=== PATIENT | male | born 1970 | race Caucasian/White ===

== ENCOUNTER 2022-08-15 14:48 | Inpatient (IN) | payer BC ==
[~2022-08-15] VITALS: Ht 175.3 cm; Wt 86.2 kg
[2022-08-15 21:25] VITALS: BP 132/70
--- NOTE | 2022-08-15 21:25 | NUR ---
ADMISSION NOTES PT ARRIVED VIA GURNEY FROM [facility] ACCOMPANIED BY 2 test baker FOR TRANSPORTATION. AOx4, ABLE TO MAKE NEEDS KNOWN. ON RA AND TOLERATING WELL. NO SOB NOTED. NO S/SX OF RESPIRATORY DISTRESS NOTED. TELE MONITOR ON. IV ACCESS IN NATALIA MIDLINE #18G. IV IS INTACT, PATENT, AND FLUSHING WELL. SAFETY PRECAUTIONS IN PLACE: BED IN LOWEST, LOCKED POSITION, SIDERAILS UPx2, AND BRAKES ON. TABLE AND CALL LIGHT WITHIN REACH. ALL NEEDS MET AT THIS TIME.
[2022-08-15] MEDS ORDERED: ZOLPIDEM TARTRATE 5 MG TABLET PO PRN (22:30)
[2022-08-15] MEDS ORDERED: DEXTROSE 50%-WATER 50 ML DISP.SYRIN IV PRN (22:30)
[2022-08-15] MEDS ORDERED: ONDANSETRON HCL/PF 4 MG/2 ML VIAL IVP PRN (22:30)
[2022-08-15] MEDS ORDERED: MAGNESIUM HYDROXIDE 30 ML UDC PO PRN (22:30)
[2022-08-15] MEDS ORDERED: MAG HYDROX/AL HYDROX/SIMETH 30 ML UDC PO PRN (22:30)
[2022-08-15] MEDS ORDERED: ACETAMINOPHEN 325 MG TABLET PO PRN (22:30)
[2022-08-15] MEDS ORDERED: Z GUARD REMEDY 4 OZ OINT TP PRN (22:30)
[2022-08-15] MEDS: MORPHINE SULFATE INJ 2 MG/ML DISP.SYRIN IV PRN (22:41)
--- NOTE | 2022-08-15 22:41 | NUR ---
RN NOTES ADMINISTERED MORPHINE FOR PAIN PER MD ORDER. VS WNL.
[2022-08-16] VITALS (16 sets, daily range): BP systolic 113–148; BP diastolic 60–86
[2022-08-16] MEDS: MORPHINE SULFATE INJ 2 MG/ML DISP.SYRIN IV PRN ×3 (02:50→14:38)
--- NOTE | 2022-08-16 02:50 | NUR ---
RN NOTES ADMINISTERED MORPHINE FOR PAIN PER MD ORDER. VS WNL.
[2022-08-16 05:50] LABS: BASOPHILS % (AUTO) 0.4 % (0.0-2.0); EOSINOPHILS % (AUTO) 6.2 % (0.0-6.0); HEMATOCRIT 35 % (39-51); HEMOGLOBIN 11.9 g/dL (13.5-17.5); LYMPHOCYTES # (AUTO) 2.3 K/uL (0.8-4.8); LYMPHOCYTES % (AUTO) 46.5 % (20.0-44.0); MEAN CORPUSCULAR HGB CONC 34 g/dl (31.0-36.0); MEAN CORPUSCULAR VOLUME 94 fL (80-96); MONOCYTES # (AUTO) 0.4 K/uL (0.1-1.30); MONOCYTES % (AUTO) 8.9 % (2.0-12.0); NEUTROPHILS # (AUTO) 1.9 K/uL (1.8-8.9); PLATELET COUNT (AUTO) 81 K/uL (150-450); RED BLOOD CELL COUNT(AUTO) 3.75 MIL/uL (4.5-6.0); WHITE BLOOD COUNT (AUTO) 4.9 K/uL (4.3-11.0)
[2022-08-16 06:03] LABS: CALCIUM, SERUM 8.4 mg/dL (8.5-10.1); CARBON DIOXIDE 29 mmol/L (21-32); CHLORIDE 103 mmol/L (98-107); CREATININE 1.4 mg/dL (0.6-1.3); GLUCOSE 92 mg/dL (74-106); MAGNESIUM 1.7 mg/dL (1.8-2.4); PHOSPHORUS 4.6 mg/dL (2.5-4.9); POTASSIUM 3.8 mmol/L (3.5-5.1); SODIUM SERUM 137 mmol/L (136-145); UREA NITROGEN, BLOOD 14 mg/dL (7-18)
[2022-08-16 06:12] LABS: CHOLESTEROL 183 mg/dL (<200); HDL CHOLESTEROL 34 mg/dL (40-60); LDL 127 mg/dL (0-99); TRIGLYCERIDES 121 mg/dL (30-150)
--- NOTE | 2022-08-16 06:52 | NUR ---
RN CLOSING NOTES PT IN BED, ASLEEP, AWAKENS TO VERBAL STIMULI. AOx4, ABLE TO MAKE NEEDS KNOWN. ON RA AND TOLERATING WELL. NO SOB NOTED. NO S/SX OF RESPIRATORY DISTRESS NOTED. TELE MONITOR DETECTS SINUS RHYTHM WITH BBB. IV ACCESS IN NATALIA MIDLINE #18G. IV IS INTACT, PATENT, AND FLUSHING WELL. ALL ORDERS CARRIED OUT. ALL NEEDS MET. PT KEPT CLEAN AND DRY. SAFETY PRECAUTIONS IN PLACE: BED IN LOWEST, LOCKED POSITION, SIDERAILS UPx2, AND BRAKES ON. TABLE AND CALL LIGHT WITHIN REACH. WILL ENDORSE TO ONCOMING SHIFT FOR GRACIELA.
[2022-08-16] MEDS: BLOOD SUGAR DIAGNOSTIC 1 EACH STRIP IN SCH ×4 (07:30→22:12)
--- NOTE | 2022-08-16 07:53 | NUR ---
RN OPENING NOTE PATIENT AWAKE IN BED RESTING. A/O X4. NO S/S OF PAIN NOTED AT THIS TIME. ON ROOM AIR, NO DISTRESS OR SHORTNESS OF BREATH NOTED. IV ACCESS NATALIA MIDLINE, INTACT, PATENT AND FLUSHING WELL. FALL AND SAFETY MEASURES IN PLACE, BED ALARM ON, BED IN LOW AND LOCK POSITION, CALL LIGHT AND TABLE WITHIN EASY REACH, SIDE RAILS UP X2. WILL CONTINUE TO MONITOR. Addendum: 08/16/22 at 0755 by Joann Lagunas RN PATIENT ON EXTERNAL CARDIA MONITOR WITH CURRENT READING OF SR WITH BBB AND HR OF 68.
[2022-08-16] MEDS ORDERED: ALLA266C2 TP (07:58)
[2022-08-16] MEDS ORDERED: ONDA4VIA52 IV (07:58)
[2022-08-16] MEDS ORDERED: ATOR10TA PO (07:58)
[2022-08-16] MEDS ORDERED: ACET-868 PO (07:58)
[2022-08-16] MEDS ORDERED: CLOP75TA15 PO (07:58)
[2022-08-16] MEDS ORDERED: MORP2VIA IV (07:58)
[2022-08-16] MEDS ORDERED: CITA40TA11 PO (07:58)
[2022-08-16] MEDS ORDERED: PANT40TA2 PO (07:58)
[2022-08-16] MEDS ORDERED: RANO10005 PO (08:02)
[2022-08-16] MEDS ORDERED: TADA5TAB13 PO (08:02)
[2022-08-16] MEDS ORDERED: TRAZ300T2 PO (08:02)
[2022-08-16] MEDS ORDERED: RISP0.2515 PO (08:02)
[2022-08-16] MEDS ORDERED: AMLO-212 PO (08:02)
[2022-08-16] MEDS ORDERED: GABA600T12 PO (08:02)
[2022-08-16] MEDS ORDERED: PRAZ1CAP5 PO (08:02)
[2022-08-16] MEDS ORDERED: BUPR1FIL24 SL (08:02)
[2022-08-16] MEDS ORDERED: ISOS120T13 PO (08:02)
[2022-08-16] MEDS: PANTOPRAZOLE 40 MG VIAL IV SCH (08:37)
[2022-08-16 08:40] LABS: EOSINOPHILS % (MANUAL) 6 % (0-4); LYMPHOCYTES % (MANUAL) 45 % (16-48); MONOCYTES % (MANUAL) 9 % (0-11.0); NEUTROPHILS % (MANUAL) 40 (42-76)
[2022-08-16] MEDS: CLOPIDOGREL BISULFATE 75 MG TABLET PO SCH (08:41)
[2022-08-16] MEDS: CITALOPRAM HYDROBROMIDE 20 MG TABLET PO SCH (08:41)
[2022-08-16] MEDS: Magnesium 1GM/D5W 100ML PREMIX 100 ML IV SCH ×2 (11:20→12:00)
[2022-08-16] MEDS ORDERED: IV SET PRIMARY PUMP SET 1 EA INFUS.SET MC ONE (11:58)
[2022-08-16] MEDS ORDERED: IV NS 0.9% 1,000 ML ONE (11:58)
[2022-08-16] MEDS ORDERED: IODIXANOL 320MG/ML 0 ML IV ONE ×2 (11:58→13:37)
[2022-08-16] MEDS ORDERED: LIDOCAINE HCL/MPF 1% 30 ML VIAL IJ ONE (11:59)
[2022-08-16] MEDS ORDERED: FENTANYL PF 100MCG/2ML AMPUL ONE (11:59)
[2022-08-16] MEDS ORDERED: MIDAZOLAM HCL 2 MG/2ML VIAL ONE (11:59)
--- NOTE | 2022-08-16 12:00 | NUR ---
RN NOTE PATIENT IS NOT IN HIS ROOM PATIENT WENT FOR CARDIAC CATH. WITH DR. ANGEL.
[2022-08-16] MEDS ORDERED: IODIXANOL 150 ML IV ONE (12:05)
--- NOTE | 2022-08-16 14:18 | NUR ---
PAPERHANGER ASSISTANT RECEIVED PT FROM [facility]ENZENE WASHER FOR OBSERVATION X 6H POST CATH. RIGHT FEMORAL APPROACH DONE, SITE CLEAN AND DRY WITH INTACT DRESSING. PT AWAKE AND ALERT, FOLLOWING COMMANDS. PT INSTRUCTED TO KEEP RLE STRAIGHT WITH NOT BENDING OR WALKING FOR NOW.
--- NOTE | 2022-08-16 14:38 | NUR ---
BLOCK TESTER MORPHINE 4 MG IVP GIVEN FOR C/O INTERMITTENT CHEST AND BACK PAIN 05/23. STATED THAT PAIN SIMILAR TO ONES HE FELT BEFORE PROCEDURE.
--- NOTE | 2022-08-16 14:52 | NUR ---
RN NOTE PATIENT WENT TO ICU FROM PROJECT ENG. BELONGINGS AND MEDICATIONS TAKEN TO ICU ROOM 255-1. REPORT GIVEN TO DARIO.
[2022-08-16] MEDS ORDERED: Magnesium 1GM/D5W 100ML PREMIX 100 ML IV SCH (15:00)
--- NOTE | 2022-08-16 16:00 | NUR ---
[facility] PAIN RELIEVED AFTER MORPHINE GIVE PER PT. DT JEANNE NOTIFIED OF EPISODE OF CHEST PAIN. PT WILL NOT BE TRANSFERRED BACK TO [place]. NO BLEEDING SEEN FROM FEMORAL SITE, DRESSING CLEAN AND DRY.
--- NOTE | 2022-08-16 18:15 | NUR ---
FLOWER CUTTER PT ASLEEP AT THIS TIME. NO DYSRHYTHMIAS SEEN. CARDIAC DIET RESUMED. PT CONSUMED 100%. CALL RECEIVED FROM DR ANGEL. UPDATE GIVEN. DR ANGEL REPORTED NO OBSTRUCTION SEEN DURING CATH.
--- NOTE | 2022-08-16 19:35 | NUR ---
RN/ICU- PT REMAINS STABLE, RIGHT FEMORAL CATH SITE INTACT W/ ANGIO-SEAL AND OCCLUSIVE DRESSING. NO BLEEDING, HEMATOMA OR SWELLING NOTED, PERIPHERAL PULSES ARE PALPABLE. EKG SR W/ HR-72/MIN. BP-123/65. DENIES CHEST PAIN OR DISCOMFORT OR SOB. TRANSFERRED TO [facility] BY BED PER PROTOCOL.
--- NOTE | 2022-08-16 19:50 | NUR ---
TRANSFER NOTES PT TRANSFERRED FROM ICU S/P LEFT HEART CARDIAC CATHETERIZATION FOR OBSERVATION WITH ALL BELONGINGS @ 1945. AOx4, ABLE TO MAKE NEEDS KNOWN. ON RA AND TOLERATING WELL. NO SOB NOTED. NO S/SX OF RESPIRATORY DISTRESS NOTED. DRESSING TO RIGHT GROIN IS CLEAN, DRY, AND INTACT. NO BLEEDING OR HEMATOMA TO AREA. IV ACCESS IN NATALIA MIDLINE #18G. IV IS INTACT, PATENT, AND FLUSHING WELL. SAFETY PRECAUTIONS IN PLACE: BED IN LOWEST, LOCKED POSITION, SIDERAILS UPx2, AND BRAKES ON. TABLE AND CALL LIGHT WITHIN REACH. ALL NEEDS MET AT THIS TIME.
[2022-08-16] MEDS ORDERED: ATORVASTATIN 10 MG TABLET PO SCH (22:00)
[2022-08-16] MEDS: INSULIN REGULAR, HUMAN 100 UNIT/ML 3 ML VIAL SQ PRN (22:12)
[2022-08-17] VITALS: BP 106/59
[2022-08-17 04:00] VITALS: BP 121/64
[2022-08-17] MEDS: BLOOD SUGAR DIAGNOSTIC 1 EACH STRIP IN SCH ×3 (06:31→17:20)
--- NOTE | 2022-08-17 06:44 | NUR ---
RN CLOSING NOTES PT IN BED, ASLEEP, AWAKENS TO VERBAL STIMULI. AOx4, ABLE TO MAKE NEEDS KNOWN. ON RA AND TOLERATING WELL. NO SOB NOTED. NO S/SX OF RESPIRATORY DISTRESS NOTED. DRESSING TO RIGHT GROIN IS CLEAN, DRY, AND INTACT. NO BLEEDING OR HEMATOMA TO AREA. IV ACCESS IN NATALIA MIDLINE #18G. IV IS INTACT, PATENT, AND FLUSHING WELL. ALL ORDERS CARRIED OUT. ALL NEEDS MET. PT KEPT CLEAN AND DRY SAFETY PRECAUTIONS IN PLACE: BED IN LOWEST, LOCKED POSITION, SIDERAILS UPx2, AND BRAKES ON. TABLE AND CALL LIGHT WITHIN REACH. WILL ENDORSE TO ONCOMING SHIFT FOR GRACIELA.
[2022-08-17 06:55] LABS: BASOPHILS % (AUTO) 0.3 % (0.0-2.0); EOSINOPHILS % (AUTO) 6.6 % (0.0-6.0); HEMATOCRIT 39 % (39-51); HEMOGLOBIN 12.9 g/dL (13.5-17.5); LYMPHOCYTES # (AUTO) 1.9 K/uL (0.8-4.8); LYMPHOCYTES % (AUTO) 36.8 % (20.0-44.0); MEAN CORPUSCULAR HGB CONC 33 g/dl (31.0-36.0); MEAN CORPUSCULAR VOLUME 96 fL (80-96); MONOCYTES # (AUTO) 0.5 K/uL (0.1-1.30); MONOCYTES % (AUTO) 9.9 % (2.0-12.0); NEUTROPHILS # (AUTO) 2.5 K/uL (1.8-8.9); NEUTROPHILS % (AUTO) 46.4 % (43.0-81.0); PLATELET COUNT (AUTO) 96 K/uL (150-450); RED BLOOD CELL COUNT(AUTO) 4.05 MIL/uL (4.5-6.0); WHITE BLOOD COUNT (AUTO) 5.3 K/uL (4.3-11.0)
[2022-08-17 07:08] LABS: CALCIUM, SERUM 8.8 mg/dL (8.5-10.1); CREATININE 1.2 mg/dL (0.6-1.3); MAGNESIUM 1.9 mg/dL (1.8-2.4); PHOSPHORUS 4.7 mg/dL (2.5-4.9)
--- NOTE | 2022-08-17 08:14 | NUR ---
RN OPENING NOTE PATIENT AWAKE IN BED RESTING. A/O X4. NO S/S OF PAIN NOTED AT THIS TIME. ON ROOM AIR, NO DISTRESS OR SHORTNESS OF BREATH NOTED. IV ACCESS NATALIA MIDLINE, INTACT, PATENT AND FLUSHING WELL. PATIENT ON EXTERNAL CARDIA MONITOR WITH CURRENT READING OF SR WITH BBB AND HR OF 64, NO CARDIAC DISTRESS NOTED. FALL AND SAFETY MEASURES IN PLACE, BED ALARM ON, BED IN LOW AND LOCK POSITION, CALL LIGHT AND TABLE WITHIN EASY REACH, SIDE RAILS UP X2. WILL CONTINUE TO MONITOR.
[2022-08-17 08:44] VITALS: BP 129/66
[2022-08-17] MEDS: PANTOPRAZOLE 40 MG VIAL IV SCH (08:51)
[2022-08-17] MEDS: CITALOPRAM HYDROBROMIDE 20 MG TABLET PO SCH (08:51)
[2022-08-17] MEDS: CLOPIDOGREL BISULFATE 75 MG TABLET PO SCH (08:51)
[2022-08-17 11:52] LABS: NEUTROPHILS % (MANUAL) 43 (42-76)
[2022-08-17 11:53] LABS: EOSINOPHILS % (MANUAL) 6 % (0-4); LYMPHOCYTES % (MANUAL) 40 % (16-48); MONOCYTES % (MANUAL) 11 % (0-11.0)
[2022-08-17] MEDS: INSULIN REGULAR, HUMAN 100 UNIT/ML 3 ML VIAL SQ PRN (12:09)
[2022-08-17] MEDS ORDERED: METOPROLOL TARTRATE 25 MG TABLET PO SCH (12:30)
[2022-08-17] MEDS: RANOLAZINE 500 MG TAB.ER.12H PO SCH ×2 (14:37→17:00)
[2022-08-17] MEDS ORDERED: METO25TA20 PO (16:07)
--- NOTE | 2022-08-17 17:40 | NUR ---
RETAIL SHIFT LEADER NOTE PATIENT DISCHARGE IN STABLE MEDICAL CONDITION. A/O X4. V/S TAKEN, STABLE AND RECORDED. NO IV ACCESS. PATIENT REFUSED SKIN ASSESSMENT AND PICTURES. NAME ARM BAND REMOVED. EXTERNAL FIELD REIMBURSEMENT MANAGER REMOVED AND RETURNED TO TELE MONITOR STATION. ALL BELONGINGS CHECKED AND SIGNED. HEALTH TEACHING AND DISCHARGE INSTRUCTIONS GIVEN AND VERBALIZED UNDERSTANDING. PATIENT LEFT UNIT AMBULATING WITH NO SIGNS OF DISTRESS, ACCOMPANIED BY RN TO THE LOBBY. PATIENT WENT HOME ALONE VIA TAXI. INSTRUCTED TO MAKE APPOINTMENT WITH HIS DOCTORS, AND INCASE OF EMERGENCY TO CALL 911 OR GO TO NEAREST ER. CHARGE NURSE AWARE OF DISCHARGE.
[2022-08-18] MEDS ORDERED: PANTOPRAZOLE 40 MG TABLET.DR PO SCH (07:30)
[2022-08-18] MEDS ORDERED: ISOSORBIDE MONONITRATE (30MG) 30 MG TAB.SR.24H PO SCH (09:00)
== END 2022-08-17 17:52 | disposition home or self-care (01) | DRG 286 ==
LOC: TELE 21:19 → ICU 08-16 14:10 → TELE 08-16 19:34
PROVIDERS: ADMIT Nurse Practitioner Acute Care; ATTEND Internal Medicine
PROC: 4A023N7 Measurement of Cardiac Sampling and Pressure, Left Heart, Percutaneous Approach (ICD-10-PCS; principal; 2022-08-17)
PROC: B211YZZ Fluoroscopy of Multiple Coronary Arteries using Other Contrast (ICD-10-PCS; 2022-08-17)
PROC: B213YZZ Fluoroscopy of Multiple Coronary Artery Bypass Grafts using Other Contrast (ICD-10-PCS; 2022-08-17)
DX: I25.110 Atherosclerotic heart disease of native coronary artery with unstable angina pectoris (principal); N17.0 Acute kidney failure with tubular necrosis; E11.42 Type 2 diabetes mellitus with diabetic polyneuropathy; D63.8 Anemia in other chronic diseases classified elsewhere; E78.5 Hyperlipidemia, unspecified; E83.42 Hypomagnesemia; I10 Essential (primary) hypertension; I25.2 Old myocardial infarction; I35.1 Nonrheumatic aortic (valve) insufficiency; Z95.1 Presence of aortocoronary bypass graft
CPT/HCPCS: 36415; 80048-TC; 80061-TC; 82962-TC; 83735-TC; 84100-TC; 84443-TC; 84484-TC; 85025-TC; 85610-TC; 87081-TC; C1887; C1894; C9113; G0378; G0500; J1644; J1815; J2250; J2270; J3010; J3475; J3490; J7030; J7050; Q9967

== ENCOUNTER 2022-11-29 15:36 | Inpatient (IN) | payer BC ==
[~2022-11-29] VITALS: Ht 175.3 cm; Wt 94.3 kg
[~2022-11-29 15:36] MED LIST: ACET-868 PO; ALLA266C2 TP; AMLO-212 PO; ATOR10TA PO; BUPR1FIL24 SL; CITA40TA11 PO; CLOP75TA15 PO; GABA600T12 PO; ISOS120T13 PO; METO25TA20 PO; PANT40TA2 PO; PRAZ1CAP5 PO; RANO10005 PO; RISP0.2515 PO; TADA5TAB13 PO; TRAZ300T2 PO
--- NOTE | 2022-11-29 15:45 | NUR ---
BIB RA 78 FROM REHAB, C/O CHEST PAIN WHILE SITTING,162 ASA GIVEN,REFUSED NTG AND IV INSERTION, BLOOD SUGAR 68
[2022-11-29] MEDS ORDERED: DEXTROSE 50%-WATER 50 ML DISP.SYRIN IVP ONE ×2 (16:00→16:30)
[2022-11-29] MEDS ORDERED: DEXTROSE 50%-WATER 50 ML DISP.SYRIN ONE (16:01)
[2022-11-29] MEDS ORDERED: INSU100V7 SQ (16:10)
[2022-11-29] MEDS ORDERED: OMEP40CA21 PO (16:10)
[2022-11-29] MEDS ORDERED: TAMS-12 PO (16:10)
[2022-11-29] MEDS ORDERED: METO25TA3 PO (16:10)
[2022-11-29] MEDS ORDERED: OMEG1CAP40 PO (16:10)
[2022-11-29] MEDS ORDERED: FURO-145 PO (16:10)
[2022-11-29] MEDS ORDERED: BUPR300T52 PO (16:10)
[2022-11-29] MEDS ORDERED: NATE60TA4 PO (16:10)
[2022-11-29] MEDS ORDERED: INSU100V27 SQ (16:10)
[2022-11-29] MEDS ORDERED: NITR0.4T48 SL (16:10)
--- NOTE | 2022-11-29 16:15 | NUR ---
20G LAC STARTED SALINE FLUSH, S/L D50 PUSHED FOR HYPOGLYCEMIA
[2022-11-29 17:04] LABS: BASOPHILS % (AUTO) 0.2 % (0.0-2.0); EOSINOPHILS % (AUTO) 1.5 % (0.0-6.0); HEMATOCRIT 38 % (39-51); HEMOGLOBIN 12.4 g/dL (13.5-17.5); LYMPHOCYTES # (AUTO) 3.4 K/uL (0.8-4.8); LYMPHOCYTES % (AUTO) 45.4 % (20.0-44.0); MEAN CORPUSCULAR HGB CONC 33 g/dl (31.0-36.0); MEAN CORPUSCULAR VOLUME 95 fL (80-96); MONOCYTES # (AUTO) 0.7 K/uL (0.1-1.30); MONOCYTES % (AUTO) 9.5 % (2.0-12.0); NEUTROPHILS # (AUTO) 3.2 K/uL (1.8-8.9); NEUTROPHILS % (AUTO) 43.4 % (43.0-81.0); PLATELET COUNT (AUTO) 120 K/uL (150-450); WHITE BLOOD COUNT (AUTO) 7.5 K/uL (4.3-11.0)
[2022-11-29 17:30] LABS: ALANINE AMINOTRANSFERASE 84 U/L (12-78); ALBUMIN 3.4 g/dL (3.4-5.0); ALKALINE PHOSPHATASE 134 U/L (46-116); ASPARTATE AMINOTRANSFERASE 54 U/L (15-37); BILIRUBIN,DIRECT 0.2 mg/dL (0.0-0.2); BILIRUBIN,TOTAL 0.4 mg/dL (0.2-1.0); CALCIUM, SERUM 9.4 mg/dL (8.5-10.1); CARBON DIOXIDE 27 mmol/L (21-32); CHLORIDE 102 mmol/L (98-107); CREATININE 1.5 mg/dL (0.6-1.3); POTASSIUM 3.6 mmol/L (3.5-5.1); SODIUM SERUM 137 mmol/L (136-145); TOTAL PROTEIN, SERUM 8.5 g/dL (6.4-8.2); UREA NITROGEN, BLOOD 23 mg/dL (7-18)
[2022-11-29 17:41] LABS: GLUCOSE 43 mg/dL (74-106)
--- NOTE | 2022-11-29 18:18 | NUR ---
covid swab taken and sent to lab
[2022-11-29] MEDS ORDERED: ONDANSETRON HCL/PF 4 MG/2 ML VIAL IVP PRN (18:30)
[2022-11-29] MEDS ORDERED: ACETAMINOPHEN 325 MG TABLET PO PRN (18:30)
[2022-11-29] MEDS ORDERED: MORPHINE SULFATE INJ 2 MG/ML DISP.SYRIN IV PRN (18:30)
[2022-11-29] MEDS ORDERED: HYDROCODONE/APAP 5/325MG TABLET PO PRN (18:30)
[2022-11-29] MEDS ORDERED: Z GUARD REMEDY 4 OZ OINT TP PRN (18:30)
[2022-11-29] MEDS ORDERED: DEXTROSE 50%-WATER 50 ML DISP.SYRIN IV PRN (18:30)
[2022-11-29] MEDS ORDERED: MAG HYDROX/AL HYDROX/SIMETH 30 ML UDC PO PRN (18:30)
[2022-11-29] MEDS ORDERED: MAGNESIUM HYDROXIDE 30 ML UDC PO PRN (18:30)
[2022-11-29] MEDS ORDERED: TADALAFIL XX SCH (19:00)
--- NOTE | 2022-11-29 19:40 | NUR ---
RM 324-2
[2022-11-29 20:00] VITALS: BP_SYST 117; BP_SYST 127; BP_DIAS 68; BP_DIAS 71
--- NOTE | 2022-11-29 20:21 | NUR ---
REPORT GIVEN TO 3W RN
[2022-11-29] MEDS ORDERED: MORPHINE SULFATE INJ 4 MG/ML DISP.SYRIN ONE (20:31)
[2022-11-29] MEDS ORDERED: MORPHINE SULFATE INJ 2 MG/ML DISP.SYRIN ONE (20:33)
[2022-11-29] MEDS: MORPHINE SULFATE INJ 2 MG/ML DISP.SYRIN IV PRN (20:35)
--- NOTE | 2022-11-29 20:48 | NUR ---
PATIENT TRANSF[facility]
--- NOTE | 2022-11-29 20:50 | NUR ---
PRETZEL TWISTERLABORER TAN HOUSE NOTE PT TRANSPORTED VIA GURNEY TO UNIT AT THIS TIME. PT FROM [facility] ADMITTED TO TELE FROM ER UNDER OYSTER GRADER ISAK FOR ADMITTING DX CHEST PAIN, POSSIBLE ACS AND UNSTABLE ANGINA. A/O X4 AND ABLE TO MAKE NEEDS KNOWN. PT ON O2 @ 2LPM VIA NC, TOLERATING WELL. NO SOB OR S/S OF RESPIRATORY DISTRESS. BREATHING EVEN AND UNLABORED. ON EXTERNAL FOAM RUBBER FABRICATOR READING SR 70 BPM. NO COMPLAINTS OF CHEST PAIN OR DISCOMFORT AT THIS TIME. SKIN IS INTACT. PT IS AMBULATORY WITH STEADY GAIT. IV ACCESS LAC 20G SL, INTACT AND PATENT. ORIENTED TO UNIT, STAFF, AND ROOM. PT BELONGINGS ACCOUNTED FOR AND BELONGINGS LIST SIGNED. SAFETY PRECAUTIONS IN PLACE. BED IN LOWEST LOCKED POSITION, HOB ELEVATED, SIDE RAILS UP X2, AND CALL LIGHT AND TABLE WITHIN REACH. ALL NEEDS MET AT THIS TIME.
[2022-11-29 20:51] VITALS: BP 127/71
[2022-11-29] MEDS: METOPROLOL TARTRATE 25 MG TABLET PO SCH (21:00)
[2022-11-29] MEDS: BLOOD SUGAR DIAGNOSTIC 1 EACH STRIP IN SCH (21:06)
[2022-11-29] MEDS: INSULIN REGULAR, HUMAN 100 UNIT/ML 3 ML VIAL SQ PRN (21:06)
--- NOTE | 2022-11-29 21:07 | NUR ---
RN NOTE BS 153. PT REFUSED INSULIN AT THIS TIME SINCE BS WAS LOW IN ER. EXPLAINED RISKS, PT VERBALIZED UNDERSTANDING AND STILL REFUSED.
[2022-11-29] MEDS: GABAPENTIN 300 MG CAPSULE PO SCH (21:34)
[2022-11-29] MEDS: ATORVASTATIN 10 MG TABLET PO SCH (21:34)
[2022-11-29] MEDS: risperiDONE 0.25 MG TABLET PO SCH (21:34)
[2022-11-29] MEDS: TRAZODONE 50 MG TABLET PO SCH (21:34)
[2022-11-29] MEDS ORDERED: ATORVASTATIN 10 MG TABLET PO SCH (22:00)
[2022-11-29] MEDS ORDERED: TRAZODONE 50 MG TABLET PO SCH (22:00)
[2022-11-30] VITALS: BP_SYST 122; BP_SYST 123; BP_SYST 97; BP_DIAS 57; BP_DIAS 68; BP_DIAS 71
[2022-11-30] MEDS: MORPHINE SULFATE INJ 2 MG/ML DISP.SYRIN IV PRN ×4 (02:49→23:13)
--- NOTE | 2022-11-30 02:50 | NUR ---
RN NOTE PT COMPLAINED OF PAIN 06/23. ADMINISTERED MORPHINE 6 MG FOR SEVERE PAIN ORDERED. MADE COMFORTABLE IN BED. ALL NEEDS MET AT THIS TIME. Addendum: 11/30/22 at 0302 by KIMBERLY PRIETO RN NO CHANGES IN TELEMETRY MONITORING. O2 SAT 98% ON 2LPM VIA NC.
--- NOTE | 2022-11-30 03:07 | NUR ---
RN NOTE PT STATED HE HAD ALLERGIES TO ASPIRIN, HYDROCODONE, PENICILLIN, CIPRO, OXYCODONE, AND ACETAMINOPHEN. REACTION IS HIVES. UPDATED ALLERGY LIST.
[2022-11-30 04:00] VITALS: BP 115/71
[2022-11-30] MEDS: BLOOD SUGAR DIAGNOSTIC 1 EACH STRIP IN SCH ×4 (06:30→22:27)
[2022-11-30 06:34] LABS: BASOPHILS % (AUTO) 0.3 % (0.0-2.0); EOSINOPHILS % (AUTO) 1.8 % (0.0-6.0); HEMATOCRIT 37 % (39-51); HEMOGLOBIN 12.2 g/dL (13.5-17.5); LYMPHOCYTES # (AUTO) 2.5 K/uL (0.8-4.8); LYMPHOCYTES % (AUTO) 35.1 % (20.0-44.0); MEAN CORPUSCULAR HGB CONC 33 g/dl (31.0-36.0); MEAN CORPUSCULAR VOLUME 95 fL (80-96); MONOCYTES # (AUTO) 0.6 K/uL (0.1-1.30); NEUTROPHILS # (AUTO) 3.9 K/uL (1.8-8.9); NEUTROPHILS % (AUTO) 54.8 % (43.0-81.0); PLATELET COUNT (AUTO) 114 K/uL (150-450); RED BLOOD CELL COUNT(AUTO) 3.96 MIL/uL (4.5-6.0); WHITE BLOOD COUNT (AUTO) 7.1 K/uL (4.3-11.0)
--- NOTE | 2022-11-30 06:35 | NUR ---
COMMUNITY DIRECTOR CLOSING NOTE PT RESTING IN BED, VERBALLY RESPONSIVE. A/O X4 AND ABLE TO MAKE NEEDS KNOWN. PT ON O2 @ 2LPM VIA NC, TOLERATING WELL. NO SOB OR S/S OF RESPIRATORY DISTRESS. BREATHING EVEN AND UNLABORED. ON EXTERNAL EGG PRODUCER READING SR 66 BPM. NO COMPLAINTS OF CHEST PAIN OR DISCOMFORT AT THIS TIME. IV ACCESS LAC 20G SL, INTACT AND PATENT. ALL DUE MEDS GIVEN ORDERED. SAFETY PRECAUTIONS IN PLACE AT ALL TIMES. BED IN LOWEST LOCKED POSITION, HOB ELEVATED, SIDE RAILS UP X2, AND CALL LIGHT AND TABLE WITHIN REACH. ALL NEEDS MET AT THIS TIME AND WILL ENDORSE TO ONCOMING NURSE FOR GRACIELA.
[2022-11-30 06:38] LABS: CARBON DIOXIDE 30 mmol/L (21-32); CHLORIDE 101 mmol/L (98-107); CREATININE 1.2 mg/dL (0.6-1.3); GLUCOSE 117 mg/dL (74-106); MAGNESIUM 1.9 mg/dL (1.8-2.4); PHOSPHORUS 5.6 mg/dL (2.5-4.9); POTASSIUM 4.1 mmol/L (3.5-5.1); SODIUM SERUM 137 mmol/L (136-145); UREA NITROGEN, BLOOD 21 mg/dL (7-18)
[2022-11-30 07:04] LABS: CHOLESTEROL 131 mg/dL (<200); HDL CHOLESTEROL 56 mg/dL (40-60); LDL 71 mg/dL (0-99); THYROID STIMULATING HORMONE 7.777 uIU/mL (0.358-3.74); TRIGLYCERIDES 54 mg/dL (30-150)
--- NOTE | 2022-11-30 07:40 | NUR ---
WORKFORCE STAFFING ADVISOR OPENING NOTE PT RESTING IN BED. A/O X4, ABLE TO MAKE NEEDS KNOWN. PT ON O2 @ 2LPM VIA NC, TOLERATING WELL. NO SOB OR S/S OF RESPIRATORY DISTRESS. BREATHING EVEN AND NON LABORED. ON EXTERNAL EARLY HEAD START TEACHER. NO COMPLAINTS OF CHEST PAIN OR DISCOMFORT AT THIS TIME. IV ACCESS LAC 20G SL, INTACT AND PATENT. SAFETY PRECAUTIONS IN PLACE AT ALL TIMES. BED IN LOWEST LOCKED POSITION, HOB ELEVATED, SIDE RAILS UP X2, AND CALL LIGHT AND TABLE WITHIN REACH. WILL CONTINUE TO MONITOR AND ASSIST.
[2022-11-30 08:00] VITALS: BP 105/71
[2022-11-30] MEDS: FUROSEMIDE 20 MG TABLET PO SCH (08:47)
[2022-11-30] MEDS: RANOLAZINE 500 MG TAB.ER.12H PO SCH ×2 (08:47→16:55)
[2022-11-30] MEDS: CITALOPRAM HYDROBROMIDE 20 MG TABLET PO SCH (08:47)
[2022-11-30] MEDS: BUPROPION XL 150 MG TAB.ER.24 PO SCH (08:47)
[2022-11-30] MEDS: TAMSULOSIN 0.4 MG CAP.SR.24H PO SCH ×2 (08:48→16:55)
[2022-11-30] MEDS: CLOPIDOGREL BISULFATE 75 MG TABLET PO SCH (08:48)
[2022-11-30] MEDS: GABAPENTIN 300 MG CAPSULE PO SCH ×2 (08:48→16:55)
[2022-11-30] MEDS: METOPROLOL TARTRATE 25 MG TABLET PO SCH ×2 (08:49→21:00)
[2022-11-30] MEDS: AMLODIPINE BESYLATE 5 MG TABLET PO SCH (08:50)
[2022-11-30] MEDS: ISOSORBIDE MONONITRATE 20 MG TABLET PO SCH ×2 (08:52→16:58)
[2022-11-30] MEDS: PANTOPRAZOLE 40 MG TABLET.DR PO SCH (08:52)
[2022-11-30] MEDS ORDERED: AMLODIPINE BESYLATE 5 MG TABLET PO SCH (09:00)
[2022-11-30] MEDS ORDERED: FUROSEMIDE 20 MG TABLET PO SCH (09:00)
[2022-11-30 12:00] VITALS: BP 103/58
[2022-11-30] MEDS: INSULIN REGULAR, HUMAN 100 UNIT/ML 3 ML VIAL SQ PRN ×3 (12:06→22:27)
[2022-11-30] MEDS ORDERED: IOHEXOL-350 100 ML VIAL IV ONE (15:43)
[2022-11-30] MEDS ORDERED: CT SWABBABLE VALVE TRANS SET 1 EA INFUS.SET MC ONE (15:43)
[2022-11-30] MEDS ORDERED: IV NS 0.9% 250 ML IV ONE (15:43)
[2022-11-30 16:00] VITALS: BP 95/57
[2022-11-30] MEDS: METOPROLOL TARTRATE INJ 5 MG/5 ML AMPUL IVP PRN ×4 (16:10→16:25)
[2022-11-30] MEDS ORDERED: METOPROLOL TARTRATE INJ 5 MG/5 ML AMPUL ONE (16:13)
[2022-11-30] MEDS ORDERED: NITROGLYCERIN 0.4 MG/TAB BOTTLE SL ONE (16:30)
--- NOTE | 2022-11-30 18:45 | NUR ---
CLIENT SPECIALIST CLOSING NOTE PT RESTING IN BED. A/O X4 AND ABLE TO MAKE NEEDS KNOWN. PT ON O2 @ 2LPM VIA NC, TOLERATING WELL. NO SOB OR S/S OF RESPIRATORY DISTRESS. BREATHING EVEN AND UNLABORED. ON EXTERNAL WELDER FITTER GAS READING SR AT 70S BPM. NO COMPLAINTS OF CHEST PAIN OR DISCOMFORT AT THIS TIME. IV ACCESS LAC 20G SL, INTACT AND PATENT. ALL DUE MEDS GIVEN ORDERED. SAFETY PRECAUTIONS IN PLACE AT ALL TIMES. BED IN LOWEST LOCKED POSITION, HOB ELEVATED, SIDE RAILS UP X2, AND CALL LIGHT AND TABLE WITHIN REACH. ALL NEEDS MET AT THIS TIME AND WILL ENDORSE TO ONCOMING NURSE FOR GRACIELA.
[2022-11-30 19:19] LABS: BILIRUBIN,URINE NEGATIVE (NEGATIVE); COLOR,URINE YELLOW (YELLOW); LEUKOCYTE ESTERASE ,URINE NEGATIVE (NEGATIVE); NITRITE, URINE NEGATIVE (NEGATIVE); PH,URINE 5.5 (5.0-8.0); PROTEIN,URINE NEGATIVE (NEGATIVE); UGLUCOSE NEGATIVE (NEGATIVE); UROBILINOGEN,URINE 0.2 EU/dL (0.2)
--- NOTE | 2022-11-30 19:47 | NUR ---
RN OPENING NOTES RECEIVED PT IN BED, AWAKE, WATCHING TV. AOx4, ABLE TO MAKE NEEDS KNOWN. ON NC 2LPM AND TOLERATING WELL. NO SOB NOTED. NO S/SX OF RESPIRATORY DISTRESS NOTED. IV ACCESS IN LAC #20G. IV IS INTACT, PATENT, AND FLUSHING WELL. SAFETY PRECAUTIONS IN PLACE: BED IN LOWEST, LOCKED POSITION, SIDERAILS UPx2, AND BRAKES ON. TABLE AND CALL LIGHT WITHIN REACH. ALL NEEDS MET AT THIS TIME.
[2022-11-30 20:51] VITALS: BP 93/55
[2022-11-30] MEDS: risperiDONE 0.25 MG TABLET PO SCH (22:14)
[2022-11-30] MEDS: ATORVASTATIN 10 MG TABLET PO SCH (22:15)
[2022-11-30] MEDS: TRAZODONE 50 MG TABLET PO SCH (22:15)
--- NOTE | 2022-11-30 23:13 | NUR ---
RN NOTES ADMINISTERED MORPHINE FOR PAIN PER MD ORDER. VS WNL.
[2022-12-01 00:04] VITALS: BP 111/65
[2022-12-01 04:25] VITALS: BP 116/56
--- NOTE | 2022-12-01 06:36 | NUR ---
RN NOTES ENTERED PATIENT ROOM TO TAKE BLOOD SUGAR. PATIENT WAS DIFFICULT TO AROUSE. DID NOT AWAKEN TO VERBAL STIMULI AND WAS ONLY AROUSABLE TO PAINFUL TACTILE STIMULI. PATIENT SAID "I AM HAVING PAIN." FURTHER ASSESSED PAIN AND IT WAS "05/23" WHICH QUALIFIES PATIENT FOR NORCO BUT PATIENT IS ALLERGIC TO NORCO. WILL FOLLOW UP WITH MD FOR FURTHER ORDERS. Addendum: 12/01/22 at 0700 by YULIANA WINTER RN PT BECAME AGITATED AND REQUESTED MORPHINE. PATIENT MADE AWARE OF PAIN SCALE. PATIENT REQUESTED TO SEE CHARGE NURSE. CHARGE NURSE MADE AWARE AND SPOKE TO CHARGE NURSEGILL.
[2022-12-01] MEDS: BLOOD SUGAR DIAGNOSTIC 1 EACH STRIP IN SCH ×2 (06:43→11:51)
[2022-12-01] MEDS: INSULIN REGULAR, HUMAN 100 UNIT/ML 3 ML VIAL SQ PRN ×2 (06:43→12:55)
--- NOTE | 2022-12-01 07:00 | NUR ---
ASPHALT TAMPING MACHINE OPERATOR OPENING NOTES: RECEIVED PT IN BED ASLEEP, EASILY AWAKE BY STIMULI. ALERT AND ORIENTED X 4. NO SOB OR CARDIAC DISTRESS WITH WILDLIFE FORENSIC GENETICIST WITH CURRENT READING:SINUS RHYTHM WITH BBB @79BPM. IV ACCESS ON LAC GAUGE 20, PATENT, INTACT AND SALINE LOCKED. SAFETY MEASURES MAINTAINED: BED LOCKED AND IN LOWEST POSITION. SIDE RAILS UP X 2, CALL LIGHT IN EASY REACH AND WILL MONITOR ACCORDINGLY.
[2022-12-01] MEDS: PANTOPRAZOLE 40 MG TABLET.DR PO SCH (07:34)
[2022-12-01 08:07] VITALS: BP 107/61
[2022-12-01] MEDS: CLOPIDOGREL BISULFATE 75 MG TABLET PO SCH (08:17)
[2022-12-01] MEDS: CITALOPRAM HYDROBROMIDE 20 MG TABLET PO SCH (08:17)
[2022-12-01] MEDS: BUPROPION XL 150 MG TAB.ER.24 PO SCH (08:17)
[2022-12-01] MEDS: TAMSULOSIN 0.4 MG CAP.SR.24H PO SCH (08:17)
[2022-12-01] MEDS: RANOLAZINE 500 MG TAB.ER.12H PO SCH (08:17)
[2022-12-01] MEDS: GABAPENTIN 300 MG CAPSULE PO SCH (08:17)
[2022-12-01] MEDS: METOPROLOL TARTRATE 25 MG TABLET PO SCH (08:18)
[2022-12-01] MEDS: FUROSEMIDE 20 MG TABLET PO SCH (08:18)
[2022-12-01] MEDS: ISOSORBIDE MONONITRATE 20 MG TABLET PO SCH (08:25)
[2022-12-01] MEDS: AMLODIPINE BESYLATE 5 MG TABLET PO SCH (08:27)
[2022-12-01] MEDS: MORPHINE SULFATE INJ 2 MG/ML DISP.SYRIN IV PRN (10:01)
[2022-12-01 11:06] VITALS: BP 107/61
--- NOTE | 2022-12-01 13:02 | NUR ---
PT DISCHARGE NOTE PT ON DC IS A/O X 4, NO PAIN, NO CARDIAC DISTRESS, PT VERBALIZES THAT HE ABLE TO WALK W/O ASSISTANCE. INFORMATION REGARDING DC INSTRUCTION GIVEN. DC PACKET GIVEN TO PT, VERBALIZE UNDERSTANDING. SKIN IS INTACT, IV ACCESS REMOVED, ID BAND REMOVED. PT IS STABLE. PT VERBALIZES HE WILL RIDE UBER. PT LEFT THE UNIT STABLE.
== END 2022-12-01 18:24 | disposition home or self-care (01) | DRG 205 ==
LOC: ER 15:38 → TELE 19:47
PROVIDERS: ADMIT Nurse Practitioner Acute Care; ATTEND Nurse Practitioner Acute Care
DX: M94.0 Chondrocostal junction syndrome [Tietze] (principal); N17.0 Acute kidney failure with tubular necrosis; T82.855A Stenosis of coronary artery stent, initial encounter; I25.110 Atherosclerotic heart disease of native coronary artery with unstable angina pectoris; Q23.1 Congenital insufficiency of aortic valve; Z95.1 Presence of aortocoronary bypass graft; Z20.822 Contact with and (suspected) exposure to COVID-19; Z98.61 Coronary angioplasty status; Z79.02 Long term (current) use of antithrombotics/antiplatelets; I10 Essential (primary) hypertension; E78.5 Hyperlipidemia, unspecified; E11.42 Type 2 diabetes mellitus with diabetic polyneuropathy; Z90.49 Acquired absence of other specified parts of digestive tract; Z88.6 Allergy status to analgesic agent; Z88.5 Allergy status to narcotic agent; Z88.8 Allergy status to other drugs, medicaments and biological substances; Z79.4 Long term (current) use of insulin; Z79.899 Other long term (current) drug therapy; D64.9 Anemia, unspecified; E66.9 Obesity, unspecified; Z68.30 Body mass index [BMI] 30.0-30.9, adult; N40.0 Benign prostatic hyperplasia without lower urinary tract symptoms; Z87.891 Personal history of nicotine dependence; E83.39 Other disorders of phosphorus metabolism; F32.A Depression, unspecified; Y83.1 Surgical operation with implant of artificial internal device as the cause of abnormal reaction of the patient, or of later complication, without mention of misadventure at the time of the procedure; Y92.009 Unspecified place in unspecified non-institutional (private) residence as the place of occurrence of the external cause
CPT/HCPCS: 36415; 71045-TC; 75574; 76700-TC; 80048-TC; 80061-TC; 80076-TC; 82962-TC; 83735-TC; 83880; 84100-TC; 84443-TC; 84484-TC; 85025-TC; 87081-TC; 93307-TC; G0378; J1815; J2270; J3490; J7050; Q9967

== ENCOUNTER 2022-12-12 21:55 | Emergency (ER) | payer BC ==
[~2022-12-12] VITALS: Ht 175.3 cm; Wt 90.7 kg
[~2022-12-12 21:55] MED LIST changes: -ACET-868 PO; -ALLA266C2 TP; -BUPR1FIL24 SL; +BUPR300T52 PO; +FURO-145 PO; +INSU100V27 SQ; +INSU100V7 SQ; -ISOS120T13 PO; -METO25TA20 PO; +METO25TA3 PO; +NATE60TA4 PO; +NITR0.4T48 SL; +OMEG1CAP40 PO; +OMEP40CA21 PO; -PANT40TA2 PO; -RANO10005 PO; +TAMS-12 PO
--- NOTE | 2022-12-12 22:15 | NUR ---
BIBS C/O LEFT CP RADIATING TO LEFT ARM X1HOUR. PATIENT IS AAOX4. ABLE TO MAKE NEEDS KNOWN. PLACED COMFORTABLY IN BED. VITALS CHECKED.
[2022-12-12 22:52] LABS: BASOPHILS % (AUTO) 0.3 % (0.0-2.0); EOSINOPHILS % (AUTO) 3.9 % (0.0-6.0); HEMATOCRIT 38 % (39-51); HEMOGLOBIN 12.4 g/dL (13.5-17.5); LYMPHOCYTES # (AUTO) 2.8 K/uL (0.8-4.8); LYMPHOCYTES % (AUTO) 35.7 % (20.0-44.0); MEAN CORPUSCULAR HGB CONC 33 g/dl (31.0-36.0); MEAN CORPUSCULAR VOLUME 96 fL (80-96); MONOCYTES # (AUTO) 0.8 K/uL (0.1-1.30); MONOCYTES % (AUTO) 10.1 % (2.0-12.0); PLATELET COUNT (AUTO) 104 K/uL (150-450); RED BLOOD CELL COUNT(AUTO) 3.95 MIL/uL (4.5-6.0); WHITE BLOOD COUNT (AUTO) 7.9 K/uL (4.3-11.0)
[2022-12-12 23:03] LABS: CALCIUM, SERUM 8.7 mg/dL (8.5-10.1); CARBON DIOXIDE 28 mmol/L (21-32); CHLORIDE 101 mmol/L (98-107); CREATININE 1.4 mg/dL (0.6-1.3); GLUCOSE 109 mg/dL (74-106); POTASSIUM 3.7 mmol/L (3.5-5.1); SODIUM SERUM 137 mmol/L (136-145); UREA NITROGEN, BLOOD 20 mg/dL (7-18)
[2022-12-12] MEDS ORDERED: MORPHINE SULFATE INJ 4 MG/ML DISP.SYRIN ONE (23:11)
[2022-12-12] MEDS ORDERED: MORPHINE SULFATE INJ 2 MG/ML DISP.SYRIN IV ONE (23:30)
--- NOTE | 2022-12-12 23:33 | NUR ---
IV CANNULA G20 INSERTED ON RIGHT FA.
--- NOTE | 2022-12-13 00:33 | NUR ---
[employer] BOATMAN AT PT'S BEDSIDE
--- NOTE | 2022-12-13 02:03 | NUR ---
IV CANNULA REMOVED
--- NOTE | 2022-12-13 02:03 | NUR ---
Patient discharged to home in stable condition. Written and verbal after care instructions given. Patient verbalizes understanding of instruction.
[2022-12-13 02:04] VITALS: BP 124/69
== END 2022-12-13 02:04 | disposition home or self-care (01) ==
LOC: ER 21:57
DX: R07.89 Other chest pain (principal); I10 Essential (primary) hypertension; Z95.1 Presence of aortocoronary bypass graft; E11.9 Type 2 diabetes mellitus without complications; Z90.49 Acquired absence of other specified parts of digestive tract; Z79.899 Other long term (current) drug therapy; Z79.4 Long term (current) use of insulin; Z88.0 Allergy status to penicillin; Z88.6 Allergy status to analgesic agent; Z88.5 Allergy status to narcotic agent; Z88.1 Allergy status to other antibiotic agents
CPT/HCPCS: 99285; 96374; 71045; 93005; 85025; 80048; 36415 ×2; 84484 ×2; J2270

== ENCOUNTER 2023-01-05 13:21 | Inpatient (IN) | payer BC ==
[~2023-01-05] VITALS: Ht 175.3 cm; Wt 93.9 kg
[2023-01-05 14:25] LABS: BASOPHILS % (AUTO) 0.2 % (0.0-2.0); HEMATOCRIT 31 % (39-51); LYMPHOCYTES # (AUTO) 1.8 K/uL (0.8-4.8); LYMPHOCYTES % (AUTO) 21.3 % (20.0-44.0); MEAN CORPUSCULAR HGB CONC 33 g/dl (31.0-36.0); MEAN CORPUSCULAR VOLUME 93 fL (80-96); MONOCYTES % (AUTO) 12.3 % (2.0-12.0); NEUTROPHILS # (AUTO) 5.3 K/uL (1.8-8.9); NEUTROPHILS % (AUTO) 64.2 % (43.0-81.0); PLATELET COUNT (AUTO) 102 K/uL (150-450); WHITE BLOOD COUNT (AUTO) 8.3 K/uL (4.3-11.0)
[2023-01-05 14:27] LABS: CALCIUM, SERUM 8.5 mg/dL (8.5-10.1); CARBON DIOXIDE 29 mmol/L (21-32); CHLORIDE 100 mmol/L (98-107); CREATININE 2.8 mg/dL (0.6-1.3); GLUCOSE 91 mg/dL (74-106); SODIUM SERUM 137 mmol/L (136-145); UREA NITROGEN, BLOOD 34 mg/dL (7-18)
--- NOTE | 2023-01-05 14:40 | NUR ---
MOVE SHEET SUBMITTED.
--- NOTE | 2023-01-05 14:45 | NUR ---
PT AOx4, able to express his concerns. Discussed plan of care, pt verbalized agreement.
[2023-01-05] MEDS ORDERED: IV NS 0.9% 1,000 ML BAG IV ONE (15:00)
--- NOTE | 2023-01-05 15:16 | NUR ---
COVID Swab sent to lab
[2023-01-05] MEDS ORDERED: MORPHINE SULFATE INJ 2 MG/ML DISP.SYRIN IV ONE (16:30)
[2023-01-05] MEDS ORDERED: MORPHINE SULFATE INJ 4 MG/ML DISP.SYRIN ONE (16:31)
--- NOTE | 2023-01-05 16:40 | NUR ---
room 115-1
--- NOTE | 2023-01-05 16:52 | NUR ---
JERRI ext. [phone]. Report given to Sosa ALEX.
--- NOTE | 2023-01-05 18:28 | NUR ---
RN CLOSING PATIENT RECEIVED IN STABLE CONDITION. ALERT AND ORIENTED X 4. ON NC 2L WITH NO SIGNS OF RESPIRATORY DISTRESS. R HAND IV SL 20G. WILL ENDORSE TO RUG WASHER RN.
[2023-01-05] MEDS ORDERED: MAGNESIUM HYDROXIDE 30 ML UDC PO PRN (18:30)
[2023-01-05] MEDS ORDERED: ACETAMINOPHEN 325 MG TABLET PO PRN (18:30)
[2023-01-05] MEDS ORDERED: NITROGLYCERIN 0.4 MG/TAB BOTTLE BC PRN (18:30)
[2023-01-05] MEDS ORDERED: MAG HYDROX/AL HYDROX/SIMETH 30 ML UDC PO PRN (18:30)
[2023-01-05] MEDS ORDERED: DEXTROSE 50%-WATER 50 ML DISP.SYRIN IV PRN (18:30)
[2023-01-05] MEDS ORDERED: Z GUARD REMEDY 4 OZ OINT TP PRN (18:30)
[2023-01-05] MEDS ORDERED: ONDANSETRON HCL/PF 4 MG/2 ML VIAL IVP PRN (18:30)
[2023-01-05] MEDS ORDERED: HYDROCODONE/APAP 5/325MG TABLET PO PRN (18:30)
--- NOTE | 2023-01-05 19:30 | NUR ---
RN NOTE RECEIVED PT IN BED, ALERT, ORIENTED X4. VERBALLY RESPONSIVE. DENIES PAIN/DISCOMFORT AT THIS TIME. PT ON 2LPM O2 VIA NC, WELL TOLERATED, NO SOB, NO ACUTE RESP DISTRESS NOTED. ATTACHED TO EXTERNAL GRINDING MACHINE OPERATOR AUTOMATIC. PT IS AMBULATORY WITH ASSIST. IV ACCESS ON R HAND #20, R WRIST #20G, CLEAN AND DRY, FLUSHING WELL, NO S/SX OF INFX/INFILTRATION. CALL LIGH WITHIN EASY REACH. SAFETY PRECAUTION IMPLEMENTED AT ALL TIMES. WILL CONT POC.
[2023-01-05 20:00] VITALS: BP 113/73
[2023-01-05] MEDS: IV NS 0.9% 1,000 ML IV PRN (21:09)
--- NOTE | 2023-01-05 21:21 | NUR ---
RN NOTE RECEIVED ORDER FROM DIANNE MCCRARY TO DC MEDICATIONS: NITROGLYCERIN, TYLENOL, AND HYDROCODONE D/T PT'S KNOWN DRUG ALLERGY. NOTED AND CARRIED OUT.
[2023-01-05 21:30] VITALS: BP 103/70
[2023-01-05] MEDS: TRAZODONE 50 MG TABLET PO SCH (22:09)
[2023-01-05] MEDS: ATORVASTATIN 40 MG TABLET PO SCH (22:10)
[2023-01-05] MEDS: risperiDONE 1 MG TABLET PO SCH (22:10)
[2023-01-05] MEDS: PRAZOSIN HCL 1 MG CAPSULE PO SCH (22:10)
[2023-01-05] MEDS: BLOOD SUGAR DIAGNOSTIC 1 EACH STRIP VI SCH (22:46)
[2023-01-05] MEDS: INSULIN REGULAR, HUMAN 100 UNIT/ML 3 ML VIAL SQ PRN (22:47)
[2023-01-05] MEDS: INSULIN GLARGINE, 100 UNIT/ML CARTRIDGE SQ SCH (22:50)
[2023-01-05] MEDS: MORPHINE SULFATE INJ 2 MG/ML DISP.SYRIN IV PRN (23:25)
[2023-01-06] VITALS (8 sets, daily range): BP systolic 101–121; BP diastolic 57–72
[2023-01-06] MEDS: MORPHINE SULFATE INJ 2 MG/ML DISP.SYRIN IV PRN (06:01)
--- NOTE | 2023-01-06 06:30 | NUR ---
RN NOTE PT REMAINS IN STABLE CONDITION. NO SIGNIFICANT CHANGES NOTED THROUGHOUT THE SHIFT. EXTERNAL SPA COORDINATOR READING SR. PT VERBALIZED GENERALIZED BODY PAIN 8/10 PER PS, NON-PHARM INTERVENTIONS PROVIED, PRN MEDICATION GIVEN ORDERED PER PT'S REQUEST, PRN MED EFFECTIVE. CURRENTLY INFUSING NS AT 75ML/HR ON R WRIST #20, WELL LUANA, NO S/SX OF CX. ALL NEEDS ATTENDED TO. ALL DUE MEDS GIVEN ORDERED. SAFETY MEASURES IMPLEMENTED AT ALL TIMES.
--- NOTE | 2023-01-06 07:19 | NUR ---
RN OPEN NOTE RECEIVED PT IN BED, ALERT, ORIENTED X4. VERBALLY RESPONSIVE. DENIES PAIN/DISCOMFORT AT THIS TIME. PT ON 2LPM O2 VIA NC, WELL TOLERATED, NO SOB, NO ACUTE RESP DISTRESS NOTED. ATTACHED TO EXTERNAL STEAM POWER PLANT OPERATOR. PT IS AMBULATORY WITH ASSIST. IV ACCESS ON R HAND #20, R WRIST #20G, CLEAN AND DRY, FLUSHING WELL, NO S/SX OF INF/INFILTRATION. CALL LIGHT WITHIN EASY REACH. BED AT LOWEST POSITION , BED ALARM IS ON .WILL CONTINUE TO MONITOR
[2023-01-06] MEDS: BLOOD SUGAR DIAGNOSTIC 1 EACH STRIP VI SCH ×4 (07:28→21:15)
[2023-01-06] MEDS: INSULIN REGULAR, HUMAN 100 UNIT/ML 3 ML VIAL SQ PRN ×2 (07:31→12:03)
[2023-01-06] MEDS: PANTOPRAZOLE 40 MG TABLET.DR PO SCH (07:41)
[2023-01-06] MEDS: CITALOPRAM HYDROBROMIDE 20 MG TABLET PO SCH (08:55)
[2023-01-06] MEDS: NATEGLINIDE 60 MG TABLET PO SCH ×3 (08:55→16:34)
[2023-01-06] MEDS: AMLODIPINE BESYLATE 5 MG TABLET PO SCH (08:56)
[2023-01-06] MEDS: BUPROPION XL 150 MG TAB.ER.24 PO SCH (08:56)
[2023-01-06] MEDS: GABAPENTIN 300 MG CAPSULE PO SCH ×2 (08:56→16:33)
[2023-01-06] MEDS: METOPROLOL SUCCINATE 25 MG TAB.SR.24H PO SCH (08:57)
[2023-01-06] MEDS: TAMSULOSIN 0.4 MG CAP.SR.24H PO SCH ×2 (08:57→16:33)
[2023-01-06] MEDS: CLOPIDOGREL BISULFATE 75 MG TABLET PO SCH (08:57)
[2023-01-06] MEDS ORDERED: FUROSEMIDE 20 MG TABLET PO SCH (09:00)
[2023-01-06] MEDS ORDERED: TADALAFIL 10 MG PO SCH (09:00)
[2023-01-06 09:03] LABS: BASOPHILS % (AUTO) 0.2 % (0.0-2.0); EOSINOPHILS % (AUTO) 2.9 % (0.0-6.0); HEMATOCRIT 34 % (39-51); LYMPHOCYTES % (AUTO) 37.5 % (20.0-44.0); MEAN CORPUSCULAR HGB CONC 32 g/dl (31.0-36.0); MEAN CORPUSCULAR VOLUME 93 fL (80-96); MONOCYTES # (AUTO) 0.7 K/uL (0.1-1.30); MONOCYTES % (AUTO) 12.3 % (2.0-12.0); NEUTROPHILS # (AUTO) 2.5 K/uL (1.8-8.9); NEUTROPHILS % (AUTO) 47.1 % (43.0-81.0); PLATELET COUNT (AUTO) 93 K/uL (150-450); RED BLOOD CELL COUNT(AUTO) 3.65 MIL/uL (4.5-6.0); WHITE BLOOD COUNT (AUTO) 5.4 K/uL (4.3-11.0)
[2023-01-06 09:24] LABS: CALCIUM, SERUM 8.4 mg/dL (8.5-10.1); CREATININE 2.3 mg/dL (0.6-1.3); MAGNESIUM 2.1 mg/dL (1.8-2.4)
[2023-01-06 16:19] LABS: LYMPHOCYTES % (MANUAL) 40 % (16-48); MONOCYTES % (MANUAL) 9 % (0-11.0); NEUTROPHILS % (MANUAL) 51 (42-76)
[2023-01-06] MEDS: *INSULIN REGULAR(HUMULIN R)HUM 100 UNIT/ML VIAL SQ PRN ×2 (16:38→21:22)
[2023-01-06] MEDS: ISOSORBIDE MONONITRATE (30MG) 30 MG TAB.SR.24H PO SCH (17:47)
[2023-01-06] MEDS: RANOLAZINE 500 MG TAB.ER.12H PO SCH (17:47)
--- NOTE | 2023-01-06 18:28 | NUR ---
RN CLOSING NOTE RECEIVED PT IN BED, ALERT, ORIENTED X4. VERBALLY RESPONSIVE. DENIES PAIN/DISCOMFORT AT THIS TIME. PT ON 2LPM O2 VIA NC, WELL TOLERATED, NO SOB, NO ACUTE RESP DISTRESS NOTED. ATTACHED TO EXTERNAL LIBRARY ATTENDANT. PT IS AMBULATORY WITH ASSIST. IV ACCESS ON R HAND #20, R WRIST #20G, CLEAN AND DRY, FLUSHING WELL, NO S/SX OF INF/INFILTRATION. CALL LIGHT WITHIN EASY REACH. BED AT LOWEST POSITION , BED ALARM IS ON .ALL MEDICATIONS WERE ADMINISTRED , ALL NEEDS WERE MET , WILL ENDORSE DIRECTOR CLINICAL INFORMATION SERVICES NURSE TO FALLOW POC
--- NOTE | 2023-01-06 19:28 | NUR ---
TELEHEALTH COORDINATOR OPENING NOTE RECEIVED PATIENT IN BED, WITH HOB ELEVATED, AWAKE, ALERT AND ORIENTED X4. AFEBRILE AND NOT IN ANY FORM OF ACUTE DISTRESS. ABLE TO COMMUNICATE NEEDS WITH THE STAFFS. ON O2 INHALATION VIA NASAL CANNULA AT 2LPM. WITH IV ACCESS ON R WRIST 20G AND R HAND RUNNING WITH NS AT 75ML/HR. NOTED WITH ELISSA DRESSING ON LEFT LOWER LEG. SAFETY MEASURES IN PLACE. KEPT BED IN LOCKED AND IN LOW POSITION. SIDE RAILS UP X2. ADVISED TO USE THE CALL LIGHT WHEN IN NEED OF ASSISTANCE.
[2023-01-06] MEDS: risperiDONE 1 MG TABLET PO SCH (21:14)
[2023-01-06] MEDS: TRAZODONE 50 MG TABLET PO SCH (21:14)
[2023-01-06] MEDS: ATORVASTATIN 40 MG TABLET PO SCH (21:14)
[2023-01-06] MEDS: PRAZOSIN HCL 1 MG CAPSULE PO SCH (21:15)
[2023-01-06] MEDS: INSULIN GLARGINE, 100 UNIT/ML CARTRIDGE SQ SCH (21:19)
[2023-01-07] VITALS: BP 122/51
[2023-01-07] MEDS: IV NS 0.9% 1,000 ML IV PRN (01:47)
[2023-01-07 04:00] VITALS: BP 105/57
--- NOTE | 2023-01-07 06:30 | NUR ---
WANIGAN CLERK CLOSING NOTE PATIENT IN BED, WITH HOB ELEVATED, ASLEEP BUT EASY TO AROUSE AND RESPONSIVE. AFEBRILE AND NOT IN ANY FORM OF ACUTE DISTRESS. ABLE TO COMMUNICATE NEEDS WITH THE STAFFS. ON O2 INHALATION VIA NASAL CANNULA AT 2LPM. WITH IV ACCESS ON R WRIST 20G AND R HAND RUNNING WITH NS AT 75ML/HR. ON TELE MONITORING WITH CURRENT READING OF SR 74. NOTED WITH ELISSA DRESSING ON LEFT LOWER LEG AND CHANGED IT PER REQUEST BY THE PATIENT. MONITORED FOR ANY S/SX. OF HYPO/HYPERGLYCEMIA. MEDICATED ORDERED. SAFETY MEASURES IN PLACE. KEPT BED IN LOCKED AND IN LOW POSITION. SIDE RAILS UP X2. ADVISED TO USE THE CALL LIGHT WHEN IN NEED OF ASSISTANCE. ALL NURSING NEEDS ATTENDED. ENDORSED TO INCOMING SHIFT FOR CONTINUITY OF CARE.
--- NOTE | 2023-01-07 07:10 | NUR ---
MS RN RECEIVED ON BED, SLEEPING, EASILY AROUSE, ORIENTED X4, CAME IN W/ CHEST PAIN, DENIES AT THIS TIME, LUNGS ARE DIMINISH, ABDOMEN SOFT,POSITIVE BOWEL SOUNDS, NS @75ML/HR RUNNING AT THIS TIME, REPOSITIONED FOR COMFORT,CALL LIGHTS W/IN REACH, WILL MONITOR PATIENT.
[2023-01-07 08:00] VITALS: BP 105/57
[2023-01-07] MEDS: CITALOPRAM HYDROBROMIDE 20 MG TABLET PO SCH (08:37)
[2023-01-07] MEDS: GABAPENTIN 300 MG CAPSULE PO SCH (08:37)
[2023-01-07] MEDS: RANOLAZINE 500 MG TAB.ER.12H PO SCH (08:38)
[2023-01-07] MEDS: BUPROPION XL 150 MG TAB.ER.24 PO SCH (08:38)
[2023-01-07] MEDS: CLOPIDOGREL BISULFATE 75 MG TABLET PO SCH (08:38)
[2023-01-07] MEDS: TAMSULOSIN 0.4 MG CAP.SR.24H PO SCH (08:40)
[2023-01-07] MEDS: NATEGLINIDE 60 MG TABLET PO SCH ×2 (08:44→12:09)
[2023-01-07 08:46] VITALS: BP 102/57
[2023-01-07] MEDS: ISOSORBIDE MONONITRATE (30MG) 30 MG TAB.SR.24H PO SCH (08:46)
[2023-01-07] MEDS: METOPROLOL SUCCINATE 25 MG TAB.SR.24H PO SCH (08:46)
[2023-01-07] MEDS: AMLODIPINE BESYLATE 5 MG TABLET PO SCH (08:46)
[2023-01-07] MEDS: BLOOD SUGAR DIAGNOSTIC 1 EACH STRIP VI SCH ×2 (08:47→11:26)
[2023-01-07] MEDS: PANTOPRAZOLE 40 MG TABLET.DR PO SCH (08:49)
[2023-01-07] MEDS: INSULIN REGULAR, HUMAN 100 UNIT/ML 3 ML VIAL SQ PRN ×2 (09:15→11:39)
--- NOTE | 2023-01-07 09:30 | NUR ---
MS RN STILL WAITING FOR BREAKFAST, CALLED KITCHEN FOR MEAL DELIVERY, MEDS GIVEN,TOLERATED WELL.
--- NOTE | 2023-01-07 09:54 | NUR ---
MS RN REPORT GIVEN TO ABI DORMAN FOR CONTINUITY OF CARE, ALL NEEDS ATTENDED.
--- NOTE | 2023-01-07 09:54 | NUR ---
PLASTER MACHINE OPERATOR NOTES GOT REPORT FROM ALYSSA RN, PATIENT IN BED, WITH HOB ELEVATED, ASLEEP BUT EASY TO AROUSE AND RESPONSIVE. AFEBRILE AND NOT IN ANY FORM OF ACUTE DISTRESS. ABLE TO COMMUNICATE NEEDS WITH THE STAFFS. ON O2 INHALATION VIA NASAL CANNULA AT 2LPM. WITH IV ACCESS ON R WRIST 20G AND R HAND RUNNING WITH NS AT 75ML/HR. ON TELE MONITORING SR. NOTED WITH ELISSA DRESSING ON LEFT LOWER LEG/ KEPT BED IN LOCKED AND IN LOW POSITION. SIDE RAILS UP X2. ADVISED TO USE THE CALL LIGHT WHEN IN NEED OF ASSISTANCE. PLAN OF CARE CONTINUE
--- NOTE | 2023-01-07 09:58 | NUR ---
MANAGER LEGAL NOTIFIED REGARDING D/C AWAITS PLACEMENT.
--- NOTE | 2023-01-07 12:11 | NUR ---
PATIENT DISCHARGE TO [facility], ALL PERSONAL BELONGINGS RELEASED TO THE PATIENT, DISCHARGE SUMMARY INSTRUCTIONS REVIEWED WITH THE PATIENT, CONFIRMED UNDERSTANDING, ALL DISCHARGE PAPERWORKS SIGNED BY THE PATIENT. PATIENT EXITED THE HOSPITAL VIA PRIVATE CAR.
== END 2023-01-07 12:12 | DRG 302 ==
LOC: ER 13:24 → TELE1 17:10 → MEDSG1 01-07 10:53
PROVIDERS: ADMIT Internal Medicine; ATTEND Internal Medicine
DX: I25.110 Atherosclerotic heart disease of native coronary artery with unstable angina pectoris (principal); N17.0 Acute kidney failure with tubular necrosis; J98.11 Atelectasis; Z20.822 Contact with and (suspected) exposure to COVID-19; Z95.1 Presence of aortocoronary bypass graft; E78.5 Hyperlipidemia, unspecified; I12.9 Hypertensive chronic kidney disease with stage 1 through stage 4 chronic kidney disease, or unspecified chronic kidney disease; E11.22 Type 2 diabetes mellitus with diabetic chronic kidney disease; Z90.49 Acquired absence of other specified parts of digestive tract; Z88.6 Allergy status to analgesic agent; Z88.1 Allergy status to other antibiotic agents; Z88.5 Allergy status to narcotic agent; Z88.0 Allergy status to penicillin; Z88.8 Allergy status to other drugs, medicaments and biological substances; Z79.4 Long term (current) use of insulin; Z79.02 Long term (current) use of antithrombotics/antiplatelets; S92.901A Unspecified fracture of right foot, initial encounter for closed fracture; X58.XXXA Exposure to other specified factors, initial encounter; Y92.9 Unspecified place or not applicable; Z98.890 Other specified postprocedural states; N18.9 Chronic kidney disease, unspecified; F29 Unspecified psychosis not due to a substance or known physiological condition; Z79.899 Other long term (current) drug therapy; G62.9 Polyneuropathy, unspecified; E86.1 Hypovolemia; I35.1 Nonrheumatic aortic (valve) insufficiency; I70.0 Atherosclerosis of aorta; Z87.891 Personal history of nicotine dependence
CPT/HCPCS: 36415; 71045-TC; 76770-TC; 80048-TC; 82962-TC; 83735-TC; 84100-TC; 84484-TC; 85025-TC; 85378-TC; 87081-TC; 93971-TC; 97116-TC; 97530-TC; C9803; G0378; J1815; J2270; J7030

== ENCOUNTER 2023-02-01 21:00 | Emergency (ER) | payer BC ==
[~2023-02-01] VITALS: Ht 175.3 cm; Wt 95.3 kg
[~2023-02-01 21:00] MED LIST changes: -NITR0.4T48 SL
--- NOTE | 2023-02-01 21:18 | NUR ---
BIBRA 102 FOR OSYCH EVAL DUE TO AGITATION WAS AT REST WHEN PAIN STARTED. AXO4 NO SOB
--- NOTE | 2023-02-01 21:36 | NUR ---
BLOOD COLLECTED SENT TO LAB
[2023-02-01 22:04] LABS: BASOPHILS % (AUTO) 0.6 % (0.0-2.0); EOSINOPHILS % (AUTO) 2.2 % (0.0-6.0); HEMATOCRIT 37 % (39-51); LYMPHOCYTES # (AUTO) 2.8 K/uL (0.8-4.8); MEAN CORPUSCULAR HGB CONC 33 g/dl (31.0-36.0); MEAN CORPUSCULAR VOLUME 94 fL (80-96); MONOCYTES # (AUTO) 0.8 K/uL (0.1-1.30); MONOCYTES % (AUTO) 9.6 % (2.0-12.0); NEUTROPHILS # (AUTO) 4.2 K/uL (1.8-8.9); NEUTROPHILS % (AUTO) 52.6 % (43.0-81.0); PLATELET COUNT (AUTO) 139 K/uL (150-450); RED BLOOD CELL COUNT(AUTO) 3.92 MIL/uL (4.5-6.0)
--- NOTE | 2023-02-01 22:12 | NUR ---
X-RAY AT [facility]
[2023-02-01 22:16] LABS: CALCIUM, SERUM 8.9 mg/dL (8.5-10.1); CARBON DIOXIDE 29 mmol/L (21-32); CHLORIDE 102 mmol/L (98-107); CREATININE 1.6 mg/dL (0.6-1.3); GLUCOSE 146 mg/dL (74-106); POTASSIUM 4.8 mmol/L (3.5-5.1); SODIUM SERUM 139 mmol/L (136-145); UREA NITROGEN, BLOOD 27 mg/dL (7-18)
[2023-02-01] MEDS ORDERED: MORPHINE SULFATE INJ 2 MG/ML DISP.SYRIN ONE (22:27)
[2023-02-01] MEDS ORDERED: MORPHINE SULFATE INJ 2 MG/ML DISP.SYRIN IV ONE (22:30)
--- NOTE | 2023-02-01 22:54 | NUR ---
IV STARTED ON L THUMB 22G
[2023-02-02 00:54] VITALS: BP 128/72
--- NOTE | 2023-02-02 00:54 | NUR ---
IV removed. Catheter intact and site benign. Pressure and 4x4 applied to site. No bleeding noted.Patient discharged to home in stable condition. Written and verbal after care instructions given. Patient verbalizes understanding of instruction.
== END 2023-02-02 00:55 | disposition home or self-care (01) ==
LOC: ER 21:00
DX: I45.10 Unspecified right bundle-branch block (principal); R07.89 Other chest pain; I10 Essential (primary) hypertension; Z95.1 Presence of aortocoronary bypass graft; E11.9 Type 2 diabetes mellitus without complications; Z90.49 Acquired absence of other specified parts of digestive tract; Z79.899 Other long term (current) drug therapy; Z79.4 Long term (current) use of insulin; Z88.0 Allergy status to penicillin; Z88.1 Allergy status to other antibiotic agents; Z88.5 Allergy status to narcotic agent
CPT/HCPCS: 99285; 96374; 71045; 93005 ×2; 85025; 80048; 36415; 84484 ×2; J2270